=== PATIENT | female | born 1995 | race Two or more races ===

== ENCOUNTER 2022-03-26 13:01 | Emergency (ER) | payer OTHER ==
[2022-03-26 13:09] VITALS: BP 122/84; PULSE 95; TEMP 98; BMI 26.9
[2022-03-26] MEDS ORDERED: SODIUM CHLORIDE 0.9% 500 ML INFUS.BAG IV ONE (13:36)
[2022-03-26] MEDS ORDERED: ONDANSETRON 4 MG/2 ML VIAL IVPUSH ONE (13:36)
[2022-03-26] MEDS ORDERED: ONDANSETRON 4 MG/2 ML VIAL ONE (13:50)
[2022-03-26 14:26] LABS: EPI CELLS >36 /uL (0-25.1); HYALINE CASTS 1 /uL (0-3.1); URINE APPEARANCE CLEAR; URINE BACTERIA 742 /uL (0-1359); URINE BILIRUBIN NEGATIVE (NEGATIVE); URINE COLOR YELLOW; URINE GLUCOSE (UA) NEGATIVE (NEGATIVE); URINE KETONE TRACE (NEGATIVE); URINE LEUK ESTERASE 1+ (NEGATIVE); URINE NITRITE NEGATIVE (NEGATIVE); URINE PROTEIN NEGATIVE (NEGATIVE); URINE RBC 4 /uL (0-23.9); URINE WBC 49 /uL (0-25.8)
[2022-03-26 14:46] LABS: CALCIUM 9.7 mg/dL (8.5-10.1)
[2022-03-26 14:47] LABS: ALBUMIN 3.7 g/dl (3.4-5.0); BLOOD UREA NITROGEN 6.6 mg/dL (7-18)
[2022-03-26 14:50] LABS: CREATININE 0.6 mg/dL (0.55-1.3)
[2022-03-26 14:51] LABS: TOT PROT 8.2 g/dl (6.4-8.2)
[2022-03-26 14:53] LABS: BILIRUBIN,TOTAL 0.5 mg/dL (0.2-1)
[2022-03-26 14:58] LABS: BASO % 0.4 % (0-2.0); EOS % 0.2 % (0-4.5); HEMATOCRIT 37.7 % (32.4-45.2); HEMOGLOBIN 11.9 GM/dL (10.7-15.3); LYMPH % 24.1 % (8-40); MCH 26.2 pg (25.7-33.7); MCHC 31.6 g/dl (32.0-36.0); MEAN CELL VOLUME 82.9 fl (80-96); MEAN PLT VOLUME 8.1 fl (7.5-11.1); MONO % 3.9 % (3.8-10.2); NEUT % 71.4 % (42.8-82.8); PLATELET COUNT 503 10^3/uL (134-434); RBC 4.55 M/mm3 (3.60-5.2); RDW 15.9 % (11.6-15.6); WHITE BLOOD COUNT 11.7 K/mm3 (4.0-10.0)
== END 2022-03-26 15:56 | disposition home or self-care (01) ==
LOC: JERFT 13:01 → JER 13:01 → JERFT 15:56
PROC: 3E033NZ Introduction of Analgesics, Hypnotics, Sedatives into Peripheral Vein, Percutaneous Approach (ICD-10-PCS; principal; 2022-03-26)
DX: O21.0 Mild hyperemesis gravidarum (principal); N30.00 Acute cystitis without hematuria
CPT/HCPCS: 36415; 80053; 81003; 84702; 85025; 86850; 86900; 86901; 87086; 99284-25

== ENCOUNTER 2022-09-30 13:09 | Emergency (ER) | payer OTHER ==
[2022-09-30 13:20] VITALS: RESP 18; BMI 30.4
[2022-09-30 17:24] VITALS: BP 106/68; PULSE 94; TEMP 97.5
== END 2022-09-30 18:50 | disposition home or self-care (01) ==
LOC: JER 13:09
DX: U07.1 COVID-19 (principal)
CPT/HCPCS: 0241U-QW; 87651; 99283-25